=== PATIENT | male | born 1975 | race Caucasian/White ===

== ENCOUNTER 2019-10-26 12:04 | Emergency (ER) | payer MEDICARE, SELFPAY ==
--- NOTE | ~2019-10-26 | XR_ITS ---
EXAMINATION: XR sacrum coccyx min 2V DATE: 10/26/2019 13:31 INDICATION: Coccygeal pain. Fall. TECHNIQUE: 3 views of the sacrum and coccyx were obtained. COMPARISON: None. FINDINGS: Bone alignment is normal. No fracture. The sacroiliac joints are normal. IMPRESSION: 1. No fracture. Reviewed, dictated and finalized at location A. IMPRESSION: 1. No fracture.
[2019-10-26 12:13] VITALS: BP 132/80; PULSE 88; RESP 24; TEMP 37.6; O2SAT 91
--- NOTE | 2019-10-26 12:34 | ED.GENADULT ---
HPI - General Adult General Chief complaint: Upper Respiratory Infection Stated complaint: Back pain Time Seen by Provider: 10/26/19 12:48 Source: patient and RN notes reviewed Mode of arrival: ambulatory Limitations: no limitations History of Present Illness HPI narrative: 44-year-old male presents with concern for back pain. Reports yesterday he fell onto his tailbone. He denies any loss of consciousness with the fall. He reports tailbone tenderness, pain with sitting and standing. Patient reports he took lorazepam 2 hours prior to arrival, patient is a poor historian, and is not answering questions consistently. Patient reports he uses THC for chronic pain management. Patient has a history of diabetes mellitus, is a dialysis patient. He reports he is due for dialysis tomorrow. He reports he was seen in the emergency room several days ago for cough, shortness of breath and was sent home with no medications. He denies loss of bowel or bladder function, denies weakness in any extremity, denies perianal anesthesia. He denies palpitations, current shortness of breath, chest pain. Patient uses cane at baseline, denies any new difficulties with his gait. MD complaint: Back pain Related Data Home Medications Medication Instructions Recorded Confirmed atorvastatin 40 mg PO DAILY 10/26/19 10/26/19 carvedilol 6.25 mg PO BID 10/26/19 10/26/19 clonidine HCl 0.1 mg PO DAILY 10/26/19 10/26/19 lorazepam [Ativan] 1 mg PO TID PRN 10/26/19 10/26/19 sucralfate 10/26/19 venlafaxine 75 mg PO BID 10/26/19 10/26/19 Allergies Allergy/AdvReac Type Severity Reaction Status Date / Time No Known Allergies Allergy Verified 10/26/19 12:10 Review of Systems Review of Systems: Narrative: CONSTITUTIONAL: Denies malaise, chills, sweats EYES: Denies visual changes CARDIOVASCULAR: Denies chest pain, palpitations RESPIRATORY: Denies current cough or dyspnea. GASTROINTESTINAL: Denies abdominal pain, nausea, vomiting, diarrhea. Denies loss of bowel function ; denies loss of bladder function SKIN: Denies bruising MUSCULOSKELETAL: Reports tailbone pain NEUROLOGIC: Denies numbness, weakness. All systems reviewed & are unremarkable except as noted in HPI and below [facility] Family History Family History (Updated 02/20/16 @ 23:19 by DOCTOR UNKNOWN) Mother Hypertension Family history of diabetes mellitus in first degree relative Father Family history of diabetes mellitus in first degree relative Social History Social History Smoking status: Former smoker Alcohol intake: never Comments At time of signature, agree with nursing past medical, surgical, social and family history. There is no relevant family history pertinent to the presenting complaint Exam Narrative: Exam Narrative: GENERAL: Well-appearing, well-nourished, and in no acute distress. HEAD: Normocephalic, atraumatic. EYES: PERRLA, conjunctivae clear ENT: Nares clear. Mucous membranes moist. NECK: Supple. CHEST: No respiratory distress. Speaks in full sentences. HEART: Regular rate and rhythm. No murmur heard EXTREMITIES: Normal, equal strength and sensation. SKIN: Warm, dry. No ecchymosis or erythema noted NEURO: Alert and oriented x3. No focal deficits. PSYCH: Normal mood and affect Course Course Emergency Course: Consulted with [facility] emergency room where patient was seen 2 days ago. Patient's O2 sat in the emergency room was 92. Patient had negative flu swab, negative chest x-ray, negative blood work 2 days ago. Patient does not meet the [facility] criteria for COVID testing at this time, according to the IDPH questionnaire. Patient reports he is a dialysis patient, and is due for dialysis tomorrow, reports he chronically gets short of breath before dialysis, patient reports he always has a low-grade temperature. Patient's EKG findings were discussed with patient, patient recommended to follow-up with his primary care provider or cardiology for follow-up. Aishwarya
--- NOTE | 2019-10-26 12:37 | ECG_ITS ---
Measurements Intervals [place] Rate: 84 P: 78 NH: 157 QRS: 31 QRSD: 106 T: 108 QT: 436 QTc: 517 Interpretive Statements SINUS RHYTHM POSSIBLE LEFT ATRIAL ENLARGEMENT BORDERLINE ST-T WAVE ABNORMALITY- LATERAL LEADS BASELINE WANDER- V1-V6 BORDERLINE ECG Electronically Signed On 10-26-2019 14:10:40 CDT by Manjit Galindo D.O.
== END 2019-10-26 13:50 | disposition left against medical advice (07) ==
PROVIDERS: Emergency Provider Nurse Practitioner; PCP Family Medicine
DX: M53.3 Sacrococcygeal disorders, not elsewhere classified (principal); E78.00 Pure hypercholesterolemia, unspecified; J44.9 Chronic obstructive pulmonary disease, unspecified; Z87.891 Personal history of nicotine dependence; K21.9 Gastro-esophageal reflux disease without esophagitis; I12.0 Hypertensive chronic kidney disease with stage 5 chronic kidney disease or end stage renal disease; E11.22 Type 2 diabetes mellitus with diabetic chronic kidney disease; N18.5 Chronic kidney disease, stage 5; E11.42 Type 2 diabetes mellitus with diabetic polyneuropathy; Z99.2 Dependence on renal dialysis; F41.9 Anxiety disorder, unspecified
CPT/HCPCS: 72220; 93005; 99213; G0463

== ENCOUNTER 2019-12-07 08:32 | Emergency (ER) | payer MEDICARE, SELFPAY ==
[2019-12-07 08:40] VITALS: BP 169/98; PULSE 93; RESP 20; TEMP 37.3; O2SAT 100
--- NOTE | 2019-12-07 08:42 | ED.BACK ---
HPI - Back Pain/Injury General Chief Complaint: Back Pain/Injury Stated Complaint: back pain Time Seen by Provider: 12/07/19 08:43 Source: patient and RN notes reviewed History of Present Illness HPI Narrative: Patient is a 44-year-old male who presents the urgent care with complaints of mid right back pain. Patient states that he woke up this morning with the pain and is uncertain if he was sleepwalking last night . Patient is currently denying any known fall, trauma or injury. Patient has a history of noncompliance. He was recently seen at [facility] emergency room and prescribed hydrocodone 5 days ago for a fall and bruising to the left lower extremity. Patient states that he has been ambulating with a cane and avoiding the use of shoes, due to debridement of the left heel. Patient is alert and oriented x3 but is extremely inappropriate. Patient loudly moans whenever provider/staff is not in the room. Patient denies using any pain medicine prior to arrival. No other acute complaints. Patient aware the plan of care. Related Data Home Medications Medication Instructions Recorded Confirmed atorvastatin 40 mg PO DAILY 10/26/19 10/26/19 carvedilol 6.25 mg PO BID 10/26/19 10/26/19 clonidine HCl 0.1 mg PO DAILY 10/26/19 10/26/19 lorazepam [Ativan] 1 mg PO TID PRN 10/26/19 10/26/19 sucralfate 10/26/19 venlafaxine 75 mg PO BID 10/26/19 10/26/19 Allergies Allergy/AdvReac Type Severity Reaction Status Date / Time No Known Allergies Allergy Verified 12/07/19 08:55 Review of Systems Review of Systems: Narrative: CONSTITUTIONAL: Denies fever, chills, or sweats. EYES: Denies visual changes, redness, or discharge. ENT: Denies rhinorrhea, congestion, sore throat, or otalgia. CARDIOVASCULAR: Denies chest pain, palpitations, or edema. RESPIRATORY: Denies cough or dyspnea. GASTROINTESTINAL: Denies abdominal pain, nausea, vomiting, or diarrhea. GENITOURINARY: Denies dysuria or hematuria. SKIN: Denies rash or itching. MUSCULOSKELETAL: Reports of right mid back pain NEUROLOGIC: Denies headache, numbness, or weakness. All other systems reviewed are negative, except as documented in HPI. [facility] Family History Family History (Updated 02/20/16 @ 23:19 by DOCTOR UNKNOWN) Mother Hypertension Family history of diabetes mellitus in first degree relative Father Family history of diabetes mellitus in first degree relative Social History Social History Smoking status: Former smoker Alcohol intake: never Comments At the time of my signature, I reviewed and agree with the nursing past medical, surgical, social, and family history. There is no relevant family history pertinent to the patient complaint. Exam Narrative: Exam Narrative: GENERAL: This is a well-nourished, well-developed patient, and appropriate continual moans HEAD: normocephalic, atraumatic. EYES: PERRL. Sclera clear/white. Vision is grossly intact. EARS: External ears normal NOSE: External nose normal with no obvious nasal discharge THROAT: Mucous membranes moist NECK: Neck supple RESPIRATORY: Clear to auscultation. Breath sounds equal bilaterally. No wheezes, rales, or rhonchi. SKIN: warm, intact with no suspicious lesions or rash, good texture and turgor. NEURO: awake, alert, and oriented to person, place and time. There were no obvious focal neurologic abnormalities. EXTREMITIES: Bilateral chronic edema to lower bilateral extremities with 2+ on the left BACK: Mild to moderate right mid back tenderness without crepitus Course Vital Signs Vital signs: Vital Signs Temperature 99.2 F 12/07/19 08:40 Pulse Rate 93 12/07/19 08:40 Respiratory Rate 12/07/19 08:40 Blood Pressure 169/98 H 12/07/19 08:40 Pulse Oximetry 100 12/07/19 08:40 Temperature 99.2 F 12/07/19 08:40 Pulse Rate 93 12/07/19 08:40 Respiratory Rate 20 12/07/19 08:40 Blood Pressure 169/98 H 12/07/19 08:40 Pulse Oximetry 100 12/07/19 08:40 Reviewed?patient i
== END 2019-12-07 09:00 | disposition home or self-care (01) ==
PROVIDERS: Emergency Provider Nurse Practitioner Family; PCP Family Medicine
DX: M54.9 Dorsalgia, unspecified (principal)
CPT/HCPCS: 99211; G0463